=== PATIENT | female | born 1985 | race Caucasian/White ===

== ENCOUNTER → 2017-03-20 16:12 | Outpatient (CLI) | payer MEDICAID, SELFPAY ==
[2017-03-20 17:42] LABS: Hematocrit 42.8 % (37-47); Hemoglobin 14.7 g/dl (12.0-15.0); Mean Corp Hgb Conc 34.3 g/gl (32-36); Mean Corpuscular Hgb 30.2 pg (27.0-32.0); Mean Corpuscular Volume 88.1 fL (81-99); Mean Platelet Vol. 10.1 fl (6.2-12.0); Platelet Count 336 K/mm3 (150-450); RBC Distribution Width CV 13.2 % (11.6-14.6); RBC Distribution Width SD 42.3 fl (35.1-43.9); Red Blood Count 4.86 M/mm3 (4.2-5.4); White Blood Count 6.7 K/mm3 (4.4-11.0)
[2017-03-20 17:55] LABS: Scan Indicated on CBC? Y/N NO
[2017-03-20 19:20] LABS: Follicle Stimulating Hormone 4.7 mIU/mL; Free T3 2.9 pg/mL (2.18-3.98); Glucose 113 mg/dL (74-106); Luteinizing Hormone 4.8 mIU/mL; Prolactin 7.5 ng/mL; T4 Free Direct 0.82 ng/dL (0.76-1.46); Thyroid Stim Hormone (TSH) 4.68 uIU/mL (0.358-3.74)
[2017-03-21 08:51] LABS: Progesterone Level 0.32 ng/mL (See Comment)
== END ==
PROVIDERS: Visit Provider Obstetrics & Gynecology
DX: N92.5 Other specified irregular menstruation (principal); R53.83 Other fatigue
CPT/HCPCS: 36415; 82947; 83001; 83002; 83036; 84144; 84146; 84439; 84443; 84481; 85027

== ENCOUNTER → 2017-03-23 16:47 | Outpatient (CLI) | payer MEDICAID, SELFPAY ==
[2017-03-23 18:46] LABS: Chlamydia Trachomatis by PCR Negative (Negative); Neisserai gonorrhoeae by PCR Negative (Negative); Probe Check PASS; Sample Adequacy Control PASS; Specimen Processing Control PASS
== END ==
PROVIDERS: Visit Provider Obstetrics & Gynecology
DX: Z11.3 Encounter for screening for infections with a predominantly sexual mode of transmission (principal)
CPT/HCPCS: 87491; 87591

== ENCOUNTER → 2017-04-26 09:17 | Outpatient (CLI) | payer MEDICAID, SELFPAY ==
[2017-05-02 11:53] LABS: HPV Reflexed? NOT INDICATED
== END ==
PROVIDERS: Visit Provider Obstetrics & Gynecology
DX: Z12.4 Encounter for screening for malignant neoplasm of cervix (principal)
CPT/HCPCS: 88175; G0145

== ENCOUNTER → 2018-05-28 | Outpatient (CLI) | payer MEDICAID, SELFPAY ==
[2018-05-30 09:20] LABS: HPV HC, High Risk Negative (Negative)
== END | disposition home or self-care (01) ==
LOC: LABSPEC 13:56
PROVIDERS: Referring Provider Obstetrics & Gynecology; Visit Provider Obstetrics & Gynecology
DX: Z12.4 Encounter for screening for malignant neoplasm of cervix (principal)
CPT/HCPCS: 87624; 88175; G0145

== ENCOUNTER 2019-08-15 11:50 | Inpatient (IN) | payer MEDICAID, SELFPAY ==
[2019-08-15] VITALS (13 sets, daily range): BP systolic 110–143; BP diastolic 36–84; PULSE 63–91; RESP 14–16; TEMP 36.3–37; O2SAT 96–99; BMI 32.1
[2019-08-15] MEDS: Lactated Ringers 500 ML 999 ML IV ×2 (12:05→12:40)
[2019-08-15 12:59] LABS: Hematocrit 37.4 % (37-47); Hemoglobin 12.3 g/dL (12.0-15.0); Mean Corp Hgb Conc 32.9 g/dL (32-36); Mean Corpuscular Hgb 31.2 pg (27.0-32.0); Mean Corpuscular Volume 94.9 fL (81-99); POSITIVE MORPHOLOGY YES; Platelet Count 182 K/mm3 (150-450); RBC Distribution Width CV 15.9 % (11.6-14.6); RBC Distribution Width SD 54.4 fl (35.1-43.9); Red Blood Count 3.94 M/mm3 (4.2-5.4); White Blood Count 14.6 K/mm3 (4.4-11.0)
[2019-08-15] MEDS: Cefazolin 2 GM in 0.9% Normal Saline 100 ML IV (13:00)
[2019-08-15 13:21] LABS: Rubella IgG > 500.0 IU/mL
[2019-08-15 13:31] LABS: Differential Indicated MANUAL DIFF
[2019-08-15 13:34] LABS: Eosinophil 1 % (0-5); Lymphocyte 12 % (19-41); Monocyte 6 % (0-10); Neutrophil-Band 1 % (0-5); Neutrophil-Segmented 80 % (47-70); Total Cells Counted 100 (MANUAL DIFF)
[2019-08-15 13:35] LABS: Absolute Lymphocyte Count 1.75 X10^3/uL (0.83-4.51); Absolute Neutrophil Count 11.8 X10^3/uL (2.0-7.7)
[2019-08-15 13:36] LABS: Platelet Estimate ADEQUATE (ADEQ); Red Cell Morphology NORM C+C NORMAL (NORM C&C)
[2019-08-15 13:45] LABS: HIV - WCH Non-Reactive (Nonreactive); Hepatitis B Surface Antigen Non-Reactive (Nonreactive); Hepatitis C Antibody Non-Reactive (Nonreactive)
[2019-08-15] MEDS: Ketorolac 30 MG/ML Syringe IV ×2 (13:50→21:43)
--- NOTE | 2019-08-15 13:54 | PCM.HP.OB ---
History Date of Admission: 08/15/19 Final KYLEIGH: 08/09/19 Gestational age: 40 Weeks and 6 Days History of this : Patient presented in labor. She went into labor at 3:30am today & was getting care with her microbiology instructor at home. Allergies No Known Allergies Allergy (Verified 03/25/13 15:13) Home Medications: Home Medications Pantoprazole Sodium [Protonix] 40 mg PO DAILY #30 tablet 03/25/13 Smoking Status: Never smoker Number of Fetus(es): 1 History Past Pregnancies: Past Pregnancies Delivery Date Name GA/ Weeks Outcome Route Wt Infant Sex Labor Length Anesthesia Delivery Location Provider FOB Labs: care with asphalt layer Physical Exam Abdomen: Gravid Neurological: Cranial nerves II-XII grossly intact Cervix Dilation (cm): 9.5 - anterior lip Assessment/Plan This is a 34 year-old, G7, P6, at 40&6 weeks gestational age. Patient presented for transfer of care from [facility]phalt [facility]. Admit to L&D Routine care Declined COVID testing
--- NOTE | 2019-08-15 13:57 | PCM.OPRPT ---
Report of Operation Surgery/Procedure Performed:: Primary low transverse section Description of Surgical Findings:: Normal maternal uterus and adnexa Delivery Classification: JEAN Final KYLEIGH: 08/09/19 Gestational age: 40 Weeks and 6 Days transfusion aide: Roman Fonseca Type of Anesthesia:: Spinal Date of Procedure: 08/15/19 Pre-Operative Diagnosis: Inability of fetus to tolerate labor Post-Operative Diagnosis: Same Indications: Patient was anterior lip/C/0. She attempted pushing past the anterior lip with no success. Patient was having persistent variables that became more severe. She was taking to the OR and decision made to proceed with section. Indications for : Nonreassuring Status Description of Procedure: Patient taken to OR where spinal anesthesia was placed emergently. She was prepped and draped in the normal sterile fashion in a dorsal supine position with a leftward tilt. After ensuring adequacy of anesthesia the Pfannensteil skin incision was made and carried through to the underlying fascia with a scalpel. The fascia was incised in the midline and carried laterally with blunt dissection. The rectus muscles were in the midline and the peritoneum was entered bluntly. The bladder flap was dissected down carefully with the Metzenbaum scissors and blunt dissection. The uterus was incised in a transverse fashion and then incision extended with cephalocaudad traction. The fetus was vertex and the head was elevated to the uterine incision. With fundal pressure the head delivered. head was gently guided to allow delivery of anterior and posterior shoulders. No excess traction placed on head. Body delivered and 3VC clamped & cut. Then the infant was handed off to the waiting RN. The placenta was delivered with gentle traction and fundal massage and the uterus was exteriorized and cleared of all clots and debris. The uterine incision was closed with 1 vicryl suture in a running locked fashion. The bovie was used to further obtain further hemostasis of the uterine incision. A second imbricating layer of monocryl was placed. The uterus was returned to the peritoneal cavity. The pelvis was irrigated & then cleared of all clots and debris. The uterine incision was reexamined and found to be hemostatic. Some damian was placed over the uterine incision due to the denuded areas. The fascia was closed with looped PDS suture in a running standard fashion. The subcutaneous tissue was examined & any bleeding bovie cauterized. The subcutaneous tissue was reapproximated with plain gut suture. The skin was closed in a subcuticular fashion by the SALES AND MARKETING ASSISTANT with me present in the labor and delivery suite. I performed the remainder of the procedure w/ assistance. Amniotic Membrane Rupture Type: Spontaneous Amniotic Fluid Description: Thick meconium Placenta Disposition: [facility] Drain: Demarco to straight drain Fluids Replaced: 1000ml Cord Entanglement: Around neck x 2, loose - around body & neck x2 Esitmated Blood Loss (ml): 700ml Infant Gender: Male - weight = 9-8 (1 minute): 8 (5 minute): 9 Delayed cord clamping: No Antibiotic Given: Ancef 2 grams IV x1, Zithromax 500 mg/5 mL X1
[2019-08-15] MEDS: Oxytocin 30 units/NS 500 ml 30 UNITS/500 ML IV.SOLN 167 UNITS IV (14:08)
[2019-08-15] MEDS: Lactated Ringers 1,000 ML 100 ML IV (14:30)
--- NOTE | 2019-08-15 14:36 | NURSING ---
blood sugar obtained at this time d/t pt with excessive shaking bs 141.
[2019-08-15 14:41] LABS: Bedside Glucose 141 mg/dL (70-110)
--- NOTE | 2019-08-15 16:37 | CASEMGMT ---
Social Work Labor and Delivery Unit Reason for Intervention: OB-ERT Summary: Responded to OB-ERT today. Patient/mother of baby being taken back to surgical area for possible delivery. Father of baby (FOB) and patient's , Panchito, present on unit. Provided supportive listening, refection, as well as answered questions as able. Emotional support provided until FOB able to be with patient during delivery. Per conversation with Panchito, this baby is the 7th for the parents. Children at home range from ages 13 to 5; 3 boy and 3 girls at home already. Panchito reports 2 children were born at birthing centers and the rest were home deliveries. Baby born today is the first born in a hospital setting for the family. Anat Mclaughlin, sewer bricklayer, providing care for this family during this . FOB expressed appreciation for social work presence during staff's care of mom and baby. No other services requested or indicated after FOB able to be with MOB for delivery. Baby delivered and FOB able to go and see the baby as well. Social work does remain available should needs arise for this family during hospital stay. Did not in chart review that family is connected with [facility] for [facility] Medicaid and with WIC. -CYNTHIA Kimble, LUMBER MOVER
[2019-08-15] MEDS: HYDROmorphone 1 MG/ML Syringe IV ×2 (16:57→23:29)
--- NOTE | 2019-08-15 17:16 | NURSING ---
rom 0910 as noted by notes that came with the pt from her laborer pipeline Aleah she noted that fluid was green at time of rupture
--- NOTE | 2019-08-15 17:50 | NURSING ---
pt was sent from home, she is a pt of Aleah Mclaughlin (mastic floor layer) the pt states Aleah broke her water and it was green. Aleah sent charting that supports this pt states her labor started at 0330 this am
[2019-08-15] MEDS: Acetaminophen 500 MG Tablet 1000 MG PO ×2 (18:59→23:30)
[2019-08-15] MEDS: 0.9% Saline Lock 10 ML Syringe IV ×2 (21:43→23:30)
[2019-08-16 00:02] VITALS: BP 120/80; PULSE 83; RESP 16; TEMP 36.7
[2019-08-16] MEDS: Enoxaparin 40 MG/0.4 ML Syringe SC (01:32)
[2019-08-16 03:28] VITALS: BP 126/70; PULSE 63; RESP 16; TEMP 37
--- NOTE | 2019-08-16 03:43 | NURSING ---
Report received from Brittany GARBER, taking over pt and care at this time.
[2019-08-16] MEDS: 0.9% Saline Lock 10 ML Syringe IV ×2 (04:13→09:31)
[2019-08-16] MEDS: Ketorolac 30 MG/ML Syringe IV ×2 (04:13→09:32)
--- NOTE | 2019-08-16 04:30 | NURSING ---
RN x2 assist to bathroom, pt painful and unable to continue when walking to bathroom and RNs helped pt back to bed. Bedside commode brought into room, first void completed 1200ml output. Pt states relief of pain and abdominal pressure after voiding.
[2019-08-16 04:57] LABS: Hematocrit 34.2 % (37-47); Hemoglobin 11.2 g/dL (12.0-15.0); Mean Corp Hgb Conc 32.7 g/dL (32-36); Mean Corpuscular Hgb 30.8 pg (27.0-32.0); Mean Platelet Vol. 11.6 fl (6.2-12.0); Platelet Count 171 K/mm3 (150-450); RBC Distribution Width CV 15.8 % (11.6-14.6); RBC Distribution Width SD 53.7 fl (35.1-43.9); Red Blood Count 3.64 M/mm3 (4.2-5.4); White Blood Count 14.7 K/mm3 (4.4-11.0)
[2019-08-16] MEDS: Acetaminophen 500 MG Tablet 1000 MG PO ×3 (05:51→19:08)
[2019-08-16] MEDS: oxyCODONE 5 MG Tablet PO ×3 (07:38→23:06)
[2019-08-16 07:40] VITALS: BP 118/76; PULSE 78; RESP 18; TEMP 36.6
[2019-08-16] MEDS: Senna/Docusate Sodium 1 Tablet PO (09:32)
[2019-08-16 12:15] VITALS: BP 107/65; PULSE 67; RESP 18; TEMP 36.7
[2019-08-16] MEDS: Ibuprofen 600 MG Tablet PO ×2 (16:04→21:55)
[2019-08-16 16:40] VITALS: BP 133/77; PULSE 96; RESP 18; TEMP 36.7
--- NOTE | 2019-08-16 18:06 | PN.OBGYN_ITS ---
Subjective: Pain controlled - Physical Exam Vitals/I&O's: Vital Signs Temp Pulse Resp BP Pulse Ox 98.1 F 96 18 133/77 H 99 08/16/19 16:40 08/16/19 16:40 08/16/19 16:40 08/16/19 16:40 08/15/19 20:00 Oxygen Delivery Method Room Air Weight: 193 lb Body Mass Index (BMI) 32.1 Intake and Output for Last 24 Hours 08/14/19 08/15/19 08/16/19 23:59 23:59 23:59 Intake Total 2871.67 / 2871.67 Output Total 700 / 700 1999 Balance 2171.67 / 2171.67 -1999 General: Alert, Oriented x3 Abdomen: Soft, Non Tender, Non-Distended - ff mid & below umb; inc - bandage c/d/i Extremities: No Calf Tenderness Neurological: Cranial nerves II-XII grossly intact Laboratory Results 08/16/19 04:35: WBC 14.7 H, RBC 3.64 L, Hgb 11.2 L, Hct 34.2 L, MCV 94.0, MCH 30.8, MCHC 32.7, RDW Std Deviation 53.7 H, RDW Coeff of Elijah 15.8 H, Plt Count 171, MPV 11.6 Current Medications Acetaminophen (Tylenol) 1,000 mg PO Q6 [facility] Last Admin: 08/16/19 11:57 Dose: 1,000 mg Documented by: Bisacodyl (Dulcolax) 10 mg RECTAL UD PRN PRN Reason: If no BM Enoxaparin Sodium (Lovenox) 40 mg SC DAILY [facility] Last Admin: 08/16/19 01:32 Dose: 40 mg Documented by: Hydrocortisone (Hytone) 1 applic TOPICAL TID PRN PRN; Protocol PRN Reason: Discomfort Naloxone HCl 4 mg/ Dextrose 504 mls @ 0 mls/hr IV .Q0M PRN; Protocol PRN Reason: Respiratory depression Ibuprofen (Motrin) 600 mg PO Q6H [facility] Last Admin: 08/16/19 16:04 Dose: 600 mg Documented by: Methylergonovine Maleate (Methergine) 0.2 mg IM X1 PRN PRN Reason: Uterine Atony Naloxone HCl (Narcan) 0.02 mg IV Q1M PRN PRN Reason: RR <10 and pt unresponsive Ondansetron HCl (Zofran) 4 mg IV Q4H PRN PRN PRN Reason: Nausea Oxycodone HCl (Oxyir) 5 - 10 mg PO Q4H PRN PRN PRN Reason: Pain Score 4-10/10 Last Admin: 08/16/19 12:50 Dose: 10 mg Documented by: Prochlorperazine Edisylate (Compazine Iv) 10 mg IV Q6H PRN PRN PRN Reason: NAUSEA Senna/Docusate Sodium (Senokot-S, Mira-Colace) 0 tablet PO DAILY [facility] Last Admin: 08/16/19 09:32 Dose: 1 tablet Documented by: Simethicone (Mylicon) 80 mg PO PCHS PRN PRN Reason: Indigestion/stomach pain Sodium Chloride () 5 - 15 ml IV UD PRN PRN Reason: SALINE FLUSH Last Admin: 08/16/19 09:31 Dose: 10 ml Documented by: Medical Necessity - Tobacco Use Smoking Status: Never smoker Assessment/Plan POD#1 Heme - HDS, cbc reviewed ID - AF, no signs infection GI/ - no issues Routine care
[2019-08-16 20:33] VITALS: BP 133/69; PULSE 80; RESP 14; TEMP 36.8
[2019-08-17] MEDS: Acetaminophen 500 MG Tablet 1000 MG PO ×2 (00:57→07:00)
[2019-08-17 01:00] VITALS: BP 116/69; PULSE 81; RESP 16; TEMP 36.8
[2019-08-17] MEDS: Ibuprofen 600 MG Tablet PO ×2 (04:04→09:47)
[2019-08-17 08:15] VITALS: BP 113/65; PULSE 77; RESP 16; TEMP 37.1
[2019-08-17] MEDS: Enoxaparin 40 MG/0.4 ML Syringe SC (09:47)
[2019-08-17] MEDS: Senna/Docusate Sodium 1 Tablet PO (09:47)
--- NOTE | 2019-08-17 11:42 | PN.OBGYN_ITS ---
Subjective: No complaints - Physical Exam Vitals/I&O's: Vital Signs Temp Pulse Resp BP Pulse Ox 98.8 F 77 16 113/65 99 08/17/19 08:15 08/17/19 08:15 08/17/19 08:15 08/17/19 08:15 08/15/19 20:00 Oxygen Delivery Method Room Air Weight: 193 lb Body Mass Index (BMI) 32.1 Intake and Output for Last 24 Hours 08/15/19 08/16/19 08/17/19 23:59 23:59 23:59 Intake Total 2871.67 / 2871.67 Output Total 700 / 700 1999 Balance 2171.67 / 2171.67 -1999 General: Alert, Oriented x3 Abdomen: Soft, Non Tender, Non-Distended - ff mid & below umb; incision - bandage c/d/i Extremities: No Calf Tenderness Current Medications Acetaminophen (Tylenol) 1,000 mg PO Q6 [facility] Last Admin: 08/17/19 07:00 Dose: 1,000 mg Documented by: Bisacodyl (Dulcolax) 10 mg RECTAL UD PRN PRN Reason: If no BM Enoxaparin Sodium (Lovenox) 40 mg SC DAILY [facility] Last Admin: 08/17/19 09:47 Dose: 40 mg Documented by: Hydrocortisone (Hytone) 1 applic TOPICAL TID PRN PRN; Protocol PRN Reason: Discomfort Naloxone HCl 4 mg/ Dextrose 504 mls @ 0 mls/hr IV .Q0M PRN; Protocol PRN Reason: Respiratory depression Ibuprofen (Motrin) 600 mg PO Q6H [facility] Last Admin: 08/17/19 09:47 Dose: 600 mg Documented by: Methylergonovine Maleate (Methergine) 0.2 mg IM X1 PRN PRN Reason: Uterine Atony Naloxone HCl (Narcan) 0.02 mg IV Q1M PRN PRN Reason: RR <10 and pt unresponsive Ondansetron HCl (Zofran) 4 mg IV Q4H PRN PRN PRN Reason: Nausea Oxycodone HCl (Oxyir) 5 - 10 mg PO Q4H PRN PRN PRN Reason: Pain Score 4-10/10 Last Admin: 08/16/19 23:06 Dose: 10 mg Documented by: Prochlorperazine Edisylate (Compazine Iv) 10 mg IV Q6H PRN PRN PRN Reason: NAUSEA Senna/Docusate Sodium (Senokot-S, Mira-Colace) 0 tablet PO DAILY [facility] Last Admin: 08/17/19 09:47 Dose: 1 tablet Documented by: Simethicone (Mylicon) 80 mg PO PCHS PRN PRN Reason: Indigestion/stomach pain Last Admin: 08/16/19 20:55 Dose: 80 mg Documented by: Sodium Chloride () 5 - 15 ml IV UD PRN PRN Reason: SALINE FLUSH Last Admin: 08/16/19 09:31 Dose: 10 ml Documented by: Medical Necessity - Tobacco Use Smoking Status: Never smoker Assessment/Plan POD#2 D/c home
--- NOTE | 2019-08-17 11:42 | DCINST_ITS ---
Discharge Diet: No Restrictions Discharge Activity: May not drive while taking narcotic pain medications., May Shower May resume sexual activity in: 6 weeks Weight Bearing Status: Weight bearing as tolerated Call your doctor if your incision/area has: Continuous Slow Oozing, Sudden Increased Bleeding, Increased Pain/ Swelling, Increased Redness, Foul Smelling Discharge, Swelling at the incision site Additional Instructions: If you experience any of the following, contact your healthcare provider. * Bleeding that soaks a pad every hour for 2 hours * Fever 100.4 or higher * Unrelieved incision or abdominal pain * Swelling, redness, discharge or bleeding from your incision or episiotomy site * Your incision begins to separate * Problems urinating (including inability to urinate or burning while urinating). * Visual changes * Severe headache * Flu-like symptoms * Pain or redness in one of both of your breasts * Pain, warmth, tenderness or swelling in your legs, especially the calf area * Frequent nausea and vomiting * Symptoms of depression or anxiety If you experience any of the following, call 911 or go to the nearest Emergency Room. * Chest pain * Problems breathing * Seizure activity * Partial or complete paralysis of a body part, slurred speech, weakness or drooping of the face, or a sudden inability to walk or hold your balance Allergies/Adverse Reactions: Allergies No Known Allergies Allergy (Verified 03/25/13 15:13) Medications to take at Discharge Pantoprazole Sodium [Protonix] 40 mg PO DAILY #30 tablet 03/25/13 Acetaminophen [Tylenol] 1,000 mg PO Q6 tablet 08/17/19 Ibuprofen [Motrin] 600 mg PO Q6H tab 08/17/19 Oxycodone [Oxyir] 5 mg PO Q6H PRN PRN 5 Days #20 tab 08/17/19 The following prescriptions were given: Oxycodone [Oxyir] 5 mg PO Q6H PRN PRN 5 Days #20 tab PRN Reason: Pain Score 4-10/10 Transmission Status: Received by [facility] [id number] Follow-Up: Call to make an appointment with your doctor for an incision check in 1-2 weeks. You will also need a 6 week post- follow up appointment. Test results from this visit will be discussed in further detail at your follow- up appointment, if applicable. Primary Care Physician: Care Physician,No Primary [Primary Care Provider] -
[2019-08-21 03:25] LABS: Rapid Plasmin Reagin (RPR) NONREACTIVE (NONREACTIVE)
== END 2019-08-17 12:05 | disposition home or self-care (01) | DRG 540 ==
PROVIDERS: Admitting Provider Obstetrics & Gynecology; Referring Provider Obstetrics & Gynecology; Visit Provider Obstetrics & Gynecology
DX: O48.0 Post-term pregnancy (principal); O69.81X0 Labor and delivery complicated by cord around neck, without compression, not applicable or unspecified; O76 Abnormality in fetal heart rate and rhythm complicating labor and delivery; O77.0 Labor and delivery complicated by meconium in amniotic fluid; Z79.899 Other long term (current) drug therapy; Z3A.40 40 weeks gestation of pregnancy; Z37.0 Single live birth
CPT/HCPCS: 59025; 59050; 82962; 85025; 85027; 86592; 86703; 86762; 86803; 86850; 86900; 86901; 87340; 99218; J7120; A4216; G0378